=== PATIENT | male | born 1950 | race Caucasian/White ===

== ENCOUNTER 2023-11-20 16:27 | Emergency (ER) | payer MEDICARE, BC ==
[2023-11-20] MEDS ORDERED: Boostrix 0.5 ML (Tdap) VIAL (>/=7 yrs of age) IM ONE (18:30)
== END 2023-11-20 18:41 | disposition home or self-care (01) ==
LOC: CSHERS 16:27
DX: S70.00XA Contusion of unspecified hip, initial encounter (principal); S40.019A Contusion of unspecified shoulder, initial encounter; S09.90XA Unspecified injury of head, initial encounter; W19.XXXA Unspecified fall, initial encounter
CPT/HCPCS: 70450; 71045; 72170; 90471; 90715